=== PATIENT | female | born 1975 | race Two or more races ===

== ENCOUNTER 2016-11-28 16:27 | Emergency (ER) | payer SELFPAY ==
[~2016-11-28 16:27] MED LIST: ADOXA PAK100 MG PO; ALLERGY RELIEF25 M1 PO; ANTIVERT25 M1 PO; BACTROBAN15 GM TP; FLONASE16 GM NS; GARAMYCIN5 ML OP; KEFLEX500 MG PO; PHENERGAN W/CO120 ML PO; PREDNISONE20 MG PO; TRAMADOL HCL50 M2 PO; TYLENOL WITH C1 EACH PO; VIIBRYD10 M1 PO; ZOFRAN ODT4 MG PO
[2016-11-28] MEDS ORDERED: DEPRESSION MED PO (17:08)
[2016-11-28 17:51] LABS: BASO % 0.2 % (0-2); EOS % 0.5 % (0-7); HCT-HEMATOCRIT 34.7 % (34.0-49.0); HGB-HEMOGLOBIN 10.6 gm/dl (12.0-15.5); LYMPH % 41.3 % (20-45); LYMPH ABSOLUTE COUNT 1.7 tho/cmm (0.8-4.5); MCH (MEAN CORPUSCULAR HGB) 23.1 pg (28.0-32.0); MCHC MEAN CORPUSCULAR HGB CONC 30.5 % (32.0-36.0); MCV (MEAN CELL VOLUME) 75.6 fl (82.0-96.0); MONOCYTE ABSOLUTE COUNT 0.3 tho/cmm (0.0-1.2); NEUTROPHIL ABSOLUTE COUNT 2.2 tho/cmm (1.6-8.0); NEUTROPHIL-AUTOMATED 2.2 tho/cmm (1.6-8.0); PLATELET COUNT 285 tho/cmm (150-450); RED BLOOD COUNT 4.59 mil/cmm (4.00-5.20); RED CELL DISTRIBUTION WIDTH 14.1 % (12.4-16.4); WHITE BLOOD COUNT 4.2 tho/cmm (4.0-10.0)
[2016-11-28 18:06] LABS: ANION GAP 12 mmol/L (0-20); BLOOD UREA NITROGEN 3 mg/dl (6-24); CALCIUM 8.8 mg/dl (8.5-10.5); CARBON DIOXIDE-VENOUS 28 mmol/L (22-32); CHLORIDE 106 mmol/l (96-110); GLUCOSE 89 mg/dL (70-110); POTASSIUM 3.6 mmol/L (3.7-5.1); SODIUM 142 mmol/L (135-145); eGFR VALUE FOR BLACK >90 mL/Min
[2016-11-28 18:10] LABS: TSH-THYROID STIMULATING HORM. 1.73 uIU/ml (0.40-3.80)
[2016-11-28 18:25] LABS: PREGNANCY-SERUM NEGATIVE (NEGATIVE)
[2016-11-28 18:37] LABS: URINE APPEARANCE CLEAR; URINE BILIRUBIN NEGATIVE (NEG); URINE BLOOD NEGATIVE (NEG); URINE COLOR PALE YELLOW; URINE GLUCOSE (UA) NEGATIVE (NEG); URINE KETONE NEGATIVE (NEG); URINE LEUKOCYTE ESTERASE NEGATIVE (NEG); URINE NITRITE NEGATIVE (NEG); URINE PROTEIN NEGATIVE (NEG)
[2016-11-28] MEDS ORDERED: MECLIZINE HCL25 M3 PO (18:48)
== END 2016-11-28 19:13 ==
LOC: EDMED 16:27
PROVIDERS: Emergency Medicine
DX: R07.89 Other chest pain (principal); R42 Dizziness and giddiness; F32.9 Major depressive disorder, single episode, unspecified; F41.9 Anxiety disorder, unspecified; Z90.89 Acquired absence of other organs; Z79.899 Other long term (current) drug therapy

== ENCOUNTER 2016-12-18 20:18 | Observation (INO) | payer SELFPAY ==
[~2016-12-18 20:18] MED LIST changes: +DEPRESSION MED PO; +MECLIZINE HCL25 M3 PO
[2016-12-18 22:25] LABS: BASO % 0.2 % (0-2); EOS % 0.2 % (0-7); HCT-HEMATOCRIT 34.1 % (34.0-49.0); HGB-HEMOGLOBIN 10.5 gm/dl (12.0-15.5); LYMPH % 48.2 % (20-45); MCH (MEAN CORPUSCULAR HGB) 23.3 pg (28.0-32.0); MCHC MEAN CORPUSCULAR HGB CONC 30.8 % (32.0-36.0); MCV (MEAN CELL VOLUME) 75.8 fl (82.0-96.0); MEAN PLATELET VOLUME 10.2 cmc (9.4-12.4); MONO % 5.1 % (0-12); MONOCYTE ABSOLUTE COUNT 0.2 tho/cmm (0.0-1.2); NEUTROPHIL ABSOLUTE COUNT 1.9 tho/cmm (1.6-8.0); NEUTROPHIL-AUTOMATED 1.9 tho/cmm (1.6-8.0); NEUTROPHILS % 46.3 % (40-80); PLATELET COUNT 256 tho/cmm (150-450); RED CELL DISTRIBUTION WIDTH 14.6 % (12.4-16.4); WHITE BLOOD COUNT 4.1 tho/cmm (4.0-10.0)
[2016-12-18 22:35] LABS: PREGNANCY-SERUM NEGATIVE (NEGATIVE)
[2016-12-18 22:40] LABS: ALBUMIN 3.6 g/dl (3.5-5.0); ALKALINE PHOSPHATASE 55 U/L (33-138); ALT/SGPT 17 U/L (12-78); ANION GAP 14 mmol/L (0-20); AST/SGOT 9 U/L (10-40); BILIRUBIN,TOTAL 0.3 mg/dl (0-1.5); BLOOD UREA NITROGEN 4 mg/dl (6-24); CALCIUM 7.9 mg/dl (8.5-10.5); CARBON DIOXIDE-VENOUS 25 mmol/L (22-32); CHLORIDE 107 mmol/l (96-110); GLUCOSE 85 mg/dL (70-110); LIPASE 79 U/L (73-393); POTASSIUM 3.4 mmol/L (3.7-5.1); SODIUM 143 mmol/L (135-145); eGFR VALUE FOR BLACK >90 mL/Min
[2016-12-18] MEDS ORDERED: NO HOME MEDICATION XX (23:48)
[2016-12-19] MEDS ORDERED: ZOFRAN4 M2 PO (01:31)
[2016-12-19] MEDS ORDERED: CARAFATE1 G2 PO (01:32)
[2016-12-19 05:55] LABS: BASO % 0.3 % (0-2); EOS % 0.3 % (0-7); HCT-HEMATOCRIT 31.8 % (34.0-49.0); HGB-HEMOGLOBIN 9.8 gm/dl (12.0-15.5); IMMATURE GRANULOCYTES ABSOLUTE 0.01 tho/cmm (0-0.03); IMMATURE GRANULOCYTES PERCENT 0.3 % (0-0.3); LYMPH % 46.5 % (20-45); LYMPH ABSOLUTE COUNT 1.9 tho/cmm (0.8-4.5); MCH (MEAN CORPUSCULAR HGB) 23.3 pg (28.0-32.0); MCHC MEAN CORPUSCULAR HGB CONC 30.8 % (32.0-36.0); MCV (MEAN CELL VOLUME) 75.7 fl (82.0-96.0); MONOCYTE ABSOLUTE COUNT 0.2 tho/cmm (0.0-1.2); NEUTROPHIL ABSOLUTE COUNT 1.9 tho/cmm (1.6-8.0); NEUTROPHIL-AUTOMATED 1.9 tho/cmm (1.6-8.0); NEUTROPHILS % 46.6 % (40-80); PLATELET COUNT 263 tho/cmm (150-450); RED CELL DISTRIBUTION WIDTH 14.8 % (12.4-16.4)
[2016-12-19 06:05] LABS: ANION GAP 11 mmol/L (0-20); BLOOD UREA NITROGEN 4 mg/dl (6-24); CALCIUM 7.6 mg/dl (8.5-10.5); CARBON DIOXIDE-VENOUS 26 mmol/L (22-32); CHLORIDE 109 mmol/l (96-110); CREATININE 0.53 mg/dl (0.50-1.10); FERRITIN 5 ng/ml (8-250); GLUCOSE 74 mg/dL (70-110); IRON 20 ug/dl (37-170); IRON BINDING CAPACITY 330 ug/dl (250-450); POTASSIUM 3.4 mmol/L (3.7-5.1); SODIUM 143 mmol/L (135-145); eGFR VALUE FOR BLACK >90 mL/Min
[2016-12-19 06:33] LABS: TSH-THYROID STIMULATING HORM. 3.38 uIU/ml (0.40-3.80)
[2016-12-19] MEDS ORDERED: IRON325 M3 PO (19:23)
[2016-12-19] MEDS ORDERED: VITAMIN B-12250 MC2 PO (19:24)
[2016-12-19] MEDS ORDERED: PRILOSEC OTC20 M1 PO (19:27)
== END 2016-12-19 20:19 ==
LOC: EDMED 20:18 → EMR2 12-19 01:10 → CAR1 12-19 01:22
PROVIDERS: Emergency Medicine; Registered Nurse; ADMIT Internal Medicine
PROC: 0DB68ZX Excision of Stomach, Via Natural or Artificial Opening Endoscopic, Diagnostic (ICD-10-PCS; principal; 2016-12-19)
DX: K29.50 Unspecified chronic gastritis without bleeding (principal); B96.81 Helicobacter pylori [H. pylori] as the cause of diseases classified elsewhere; R63.0 Anorexia; D50.9 Iron deficiency anemia, unspecified; E87.6 Hypokalemia; E83.51 Hypocalcemia; Z88.0 Allergy status to penicillin; Z88.2 Allergy status to sulfonamides; Z88.8 Allergy status to other drugs, medicaments and biological substances; Z86.73 Personal history of transient ischemic attack (TIA), and cerebral infarction without residual deficits; Z90.49 Acquired absence of other specified parts of digestive tract; Z98.890 Other specified postprocedural states
CPT/HCPCS: G0378; G0500; J1200; J2405; J3420; J7030; Q9967

== ENCOUNTER 2016-12-22 16:14 | Emergency (ER) | payer SELFPAY ==
[~2016-12-22 16:14] MED LIST changes: +CARAFATE1 G2 PO; +IRON325 M3 PO; +NO HOME MEDICATION XX; +PRILOSEC OTC20 M1 PO; +VITAMIN B-12250 MC2 PO; +ZOFRAN4 M2 PO
[2016-12-22 18:53] LABS: BASO % 0.3 % (0-2); EOS % 0.3 % (0-7); HCT-HEMATOCRIT 36.9 % (34.0-49.0); HGB-HEMOGLOBIN 11.6 gm/dl (12.0-15.5); LYMPH % 36.9 % (20-45); LYMPH ABSOLUTE COUNT 1.2 tho/cmm (0.8-4.5); MCH (MEAN CORPUSCULAR HGB) 23.7 pg (28.0-32.0); MCHC MEAN CORPUSCULAR HGB CONC 31.4 % (32.0-36.0); MCV (MEAN CELL VOLUME) 75.5 fl (82.0-96.0); MEAN PLATELET VOLUME 10.7 cmc (9.4-12.4); MONO % 5.6 % (0-12); MONOCYTE ABSOLUTE COUNT 0.2 tho/cmm (0.0-1.2); NEUTROPHIL ABSOLUTE COUNT 1.8 tho/cmm (1.6-8.0); NEUTROPHIL-AUTOMATED 1.8 tho/cmm (1.6-8.0); NEUTROPHILS % 56.9 % (40-80); PLATELET COUNT 294 tho/cmm (150-450); RED BLOOD COUNT 4.89 mil/cmm (4.00-5.20); RED CELL DISTRIBUTION WIDTH 14.5 % (12.4-16.4); WHITE BLOOD COUNT 3.2 tho/cmm (4.0-10.0)
[2016-12-22 19:04] LABS: ALB/GLOB RATIO 1.1 (0.8-2.0); ALBUMIN 4.2 g/dl (3.5-5.0); ALKALINE PHOSPHATASE 62 U/L (33-138); ALT/SGPT 17 U/L (12-78); ANION GAP 14 mmol/L (0-20); AST/SGOT 18 U/L (10-40); BILIRUBIN,TOTAL 0.3 mg/dl (0-1.5); BLOOD UREA NITROGEN 3 mg/dl (6-24); CALCIUM 8.6 mg/dl (8.5-10.5); CARBON DIOXIDE-VENOUS 26 mmol/L (22-32); CHLORIDE 105 mmol/l (96-110); GLUCOSE 83 mg/dL (70-110); POTASSIUM 3.3 mmol/L (3.7-5.1); SODIUM 142 mmol/L (135-145); eGFR VALUE FOR BLACK >90 mL/Min
[2016-12-22 19:14] LABS: PREGNANCY-SERUM NEGATIVE (NEGATIVE)
[2016-12-22] MEDS ORDERED: LEVAQUIN500 M1 PO (19:54)
== END 2016-12-22 20:44 ==
LOC: EDMED 16:14
PROVIDERS: Emergency Medicine
DX: B96.81 Helicobacter pylori [H. pylori] as the cause of diseases classified elsewhere (principal); E87.6 Hypokalemia; R42 Dizziness and giddiness; Z90.89 Acquired absence of other organs; Z88.0 Allergy status to penicillin; Z88.2 Allergy status to sulfonamides; Z88.6 Allergy status to analgesic agent
CPT/HCPCS: C9113; J2405; J7030